=== PATIENT | female | born 1980 | race Caucasian/White ===

== ENCOUNTER 2020-06-27 06:19 | Day surgery (SDC) | payer OTHER ==
[2020-06-26 10:21] VITALS: BMI 41.0
[2020-06-27] MEDS ORDERED: MIDAZOLAM HCL 2 MG/2 ML SINGLE DOSE VIAL ONE ×2 (08:45→08:49)
[2020-06-27 08:48] VITALS: TEMP 97.7
[2020-06-27] MEDS ORDERED: ACETAMINOPHEN 325 MG TABLET (FP) ONE (10:09)
[2020-06-27 16:11] VITALS: BP 133/84; PULSE 88
== END 2020-06-27 11:30 | disposition home or self-care (01) ==
LOC: JASU-SURG 06:19
PROVIDERS: ATTEND Urology
PROC: 0TF3XZZ Fragmentation in Right Kidney Pelvis, External Approach (ICD-10-PCS; principal; 2020-06-27 08:45)
DX: N20.0 Calculus of kidney (principal)
CPT/HCPCS: 81025; 84703

== ENCOUNTER 2021-09-10 00:50 | Emergency (ER) | payer OTHER ==
[2021-09-10 01:05] VITALS: BP 128/80; PULSE 92; TEMP 97.6
[2021-09-10] MEDS ORDERED: ACETAMINOPHEN INJECTION 100 ML IVPB ONE (02:06)
[2021-09-10] MEDS ORDERED: ACETAMINOPHEN 1000 MG/100 ML BAG IVPB ONE (02:07)
[2021-09-10 02:11] LABS: BASO % 0.7 % (0-2.0); EOS % 4.5 % (0-4.5); HEMATOCRIT 38.9 % (32.4-45.2); HEMOGLOBIN 13.4 GM/dL (10.7-15.3); LYMPH % 20.8 % (8-40); MCH 32.1 pg (25.7-33.7); MCHC 34.3 g/dl (32.0-36.0); MEAN CELL VOLUME 93.5 fl (80-96); MONO % 7.4 % (3.8-10.2); NEUT % 66.6 % (42.8-82.8); PLATELET COUNT 261 10^3/uL (134-434); RBC 4.17 M/mm3 (3.60-5.2); RDW 14.5 % (11.6-15.6)
[2021-09-10 02:20] LABS: EPI CELLS >36 /uL (0-25.1); HYALINE CASTS 0 /uL (0-3.1); URINE APPEARANCE CLEAR; URINE BACTERIA 807 /uL (0-1359); URINE BILIRUBIN NEGATIVE (NEGATIVE); URINE COLOR YELLOW; URINE GLUCOSE (UA) NEGATIVE (NEGATIVE); URINE KETONE NEGATIVE (NEGATIVE); URINE LEUK ESTERASE NEGATIVE (NEGATIVE); URINE NITRITE NEGATIVE (NEGATIVE); URINE PROTEIN NEGATIVE (NEGATIVE); URINE RBC 51 /uL (0-23.9); URINE UROBILINOGEN 0.2 mg/dL (0.2-1.0); URINE WBC 25 /uL (0-25.8)
[2021-09-10 02:31] LABS: ALBUMIN 3.1 g/dl (3.4-5.0); BLOOD UREA NITROGEN 15.9 mg/dL (7-18); CALCIUM 8.4 mg/dL (8.5-10.1)
[2021-09-10 02:35] LABS: CREATININE 0.7 mg/dL (0.55-1.3)
[2021-09-10 02:36] LABS: BILIRUBIN,TOTAL 0.2 mg/dL (0.2-1); TOT PROT 6.4 g/dl (6.4-8.2)
[2021-09-10] MEDS ORDERED: CEPHALEXIN MONOHYDRATE 500 MG CAPSULE (UD) PO ONE (04:34)
[2021-09-10] MEDS ORDERED: CEPHALEXIN MONOHYDRATE 500 MG CAPSULE (UD) ONE (04:39)
== END 2021-09-10 04:48 | disposition home or self-care (01) ==
LOC: JER 00:50
PROC: 3E0333Z Introduction of Anti-inflammatory into Peripheral Vein, Percutaneous Approach (ICD-10-PCS; principal; 2021-09-10)
DX: K46.9 Unspecified abdominal hernia without obstruction or gangrene (principal); R31.9 Hematuria, unspecified; N13.30 Unspecified hydronephrosis
CPT/HCPCS: 36415; 74177-TC; 80053; 81003; 83605; 84703; 85025; 87086; 93005; 93010; 96374; 99285-25

== ENCOUNTER 2021-12-24 04:44 | Day surgery (SDC) | payer OTHER ==
[2021-12-21 13:12] VITALS: BMI 46.8
[2021-12-24] MEDS ORDERED: MIDAZOLAM HCL 2 MG/2 ML SINGLE DOSE VIAL ONE (16:57)
[2021-12-24 18:09] VITALS: BP 132/94; PULSE 73; TEMP 98.1
== END 2021-12-24 18:10 | disposition home or self-care (01) ==
LOC: JASU-SURG 04:44
PROVIDERS: ATTEND Urology
PROC: 0TF3XZZ Fragmentation in Right Kidney Pelvis, External Approach (ICD-10-PCS; principal; 2021-12-24 17:00)
DX: N20.0 Calculus of kidney (principal)
CPT/HCPCS: 81025

== ENCOUNTER 2022-06-10 04:26 | Day surgery (SDC) | payer OTHER ==
[2022-06-04 18:24] VITALS: BMI 46.8
[2022-06-10 14:50] VITALS: RESP 20
[2022-06-10] MEDS ORDERED: ONDANSETRON 4 MG/2 ML VIAL ONE (15:58)
[2022-06-10] MEDS ORDERED: FENTANYL CITRATE/PF 50 MCG/ML VIAL ONE (17:11)
[2022-06-10] MEDS ORDERED: MIDAZOLAM HCL 2 MG/2 ML SINGLE DOSE VIAL ONE (17:11)
[2022-06-10] MEDS ORDERED: PROPOFOL 20 ML ONE (17:31)
[2022-06-10 19:09] VITALS: TEMP 98
[2022-06-10 19:15] VITALS: BP 124/74; PULSE 75
== END 2022-06-10 18:45 | disposition home or self-care (01) ==
LOC: JASU-SURG 04:26
PROVIDERS: ATTEND Urology
PROC: 0TF4XZZ Fragmentation in Left Kidney Pelvis, External Approach (ICD-10-PCS; principal; 2022-06-10 16:00)
DX: N20.0 Calculus of kidney (principal)
CPT/HCPCS: 81025

== ENCOUNTER 2022-08-25 15:26 | Emergency (ER) | payer OTHER ==
[2022-08-25 15:33] VITALS: BP 126/85; PULSE 90; RESP 18; TEMP 98.4; BMI 46.8
[2022-08-25] MEDS ORDERED: KETOROLAC TROMETHAMINE 30 MG/1 ML VIAL IVPUSH ONE (16:49)
[2022-08-25] MEDS ORDERED: KETOROLAC TROMETHAMINE 30 MG/1 ML VIAL ONE (16:57)
[2022-08-25 17:24] LABS: BASO % 0.8 % (0-2.0); EOS % 3.9 % (0-4.5); HEMATOCRIT 40.1 % (32.4-45.2); HEMOGLOBIN 13.6 GM/dL (10.7-15.3); LYMPH % 16.2 % (8-40); MCH 32.3 pg (25.7-33.7); MCHC 33.9 g/dl (32.0-36.0); MEAN CELL VOLUME 95.3 fl (80-96); MEAN PLT VOLUME 8.3 fl (7.5-11.1); MONO % 7.1 % (3.8-10.2); PLATELET COUNT 287 10^3/uL (134-434); RDW 14.7 % (11.6-15.6); WHITE BLOOD COUNT 13.4 K/mm3 (4.0-10.0)
[2022-08-25 17:47] LABS: BLOOD UREA NITROGEN 20.1 mg/dL (7-18); CALCIUM 8.5 mg/dL (8.5-10.1)
[2022-08-25 17:49] LABS: ALBUMIN 3.2 g/dl (3.4-5.0)
[2022-08-25 17:51] LABS: CREATININE 0.6 mg/dL (0.55-1.3)
[2022-08-25 17:53] LABS: BILIRUBIN,TOTAL 0.3 mg/dL (0.2-1); TOT PROT 6.8 g/dl (6.4-8.2)
[2022-08-25 18:33] LABS: EPI CELLS 13 /uL (0-25.1); HYALINE CASTS 1 /uL (0-3.1); PH,URINE 7.5 (5.0-8.0); URINE APPEARANCE CLEAR; URINE BACTERIA 352 /uL (0-1359); URINE BILIRUBIN NEGATIVE (NEGATIVE); URINE COLOR YELLOW; URINE GLUCOSE (UA) NEGATIVE (NEGATIVE); URINE KETONE NEGATIVE (NEGATIVE); URINE LEUK ESTERASE NEGATIVE (NEGATIVE); URINE NITRITE NEGATIVE (NEGATIVE); URINE PROTEIN NEGATIVE (NEGATIVE); URINE RBC 49 /uL (0-23.9); URINE UROBILINOGEN 0.2 mg/dL (0.2-1.0); URINE WBC 16 /uL (0-25.8)
== END 2022-08-25 20:12 | disposition home or self-care (01) ==
LOC: JERFT 15:26 → JER 15:26 → JERFT 20:12
PROC: 3E0333Z Introduction of Anti-inflammatory into Peripheral Vein, Percutaneous Approach (ICD-10-PCS; principal; 2022-08-25)
DX: M79.605 Pain in left leg (principal); M79.604 Pain in right leg
CPT/HCPCS: 36415; 80053; 81003; 82550; 82553; 85025; 93970-TC; 99284-25

== ENCOUNTER 2023-08-23 06:29 | Emergency (ER) | payer OTHER ==
[2023-08-23 06:40] VITALS: BMI 34.7
[2023-08-23] MEDS ORDERED: ACETAMINOPHEN INJECTION 100 ML IVPB ONE (07:50)
[2023-08-23] MEDS ORDERED: KETOROLAC TROMETHAMINE 15 MG/ML VIAL ONE (07:51)
[2023-08-23] MEDS: KETOROLAC TROMETHAMINE 15 MG/ML VIAL IVPUSH ONE (08:04)
[2023-08-23] MEDS: ACETAMINOPHEN 1000 MG/100 ML BAG IVPB ONE (08:04)
[2023-08-23] MEDS: LACTATED RINGERS SOLUTION 1000 ML INFUS.BAG IV ONE (08:15)
[2023-08-23 08:21] LABS: POTASSIUM 3.9 mmol/L (3.5-5.1)
[2023-08-23 08:23] LABS: CALCIUM 8.5 mg/dL (8.5-10.1)
[2023-08-23 08:24] LABS: ALBUMIN 3.4 g/dl (3.4-5.0); BLOOD UREA NITROGEN 16.7 mg/dL (7-18)
[2023-08-23 08:26] LABS: EPI CELLS 18 /uL (0-25.1); HYALINE CASTS 0 /uL (0-3.1); URINE APPEARANCE CLEAR; URINE BACTERIA 368 /uL (0-1359); URINE BILIRUBIN NEGATIVE (NEGATIVE); URINE COLOR YELLOW; URINE GLUCOSE (UA) NEGATIVE (NEGATIVE); URINE KETONE NEGATIVE (NEGATIVE); URINE LEUK ESTERASE NEGATIVE (NEGATIVE); URINE NITRITE NEGATIVE (NEGATIVE); URINE PROTEIN NEGATIVE (NEGATIVE); URINE RBC 93 /uL (0-23.9); URINE UROBILINOGEN 0.2 mg/dL (0.2-1.0); URINE WBC 6 /uL (0-25.8)
[2023-08-23 08:27] LABS: CREATININE 0.7 mg/dL (0.55-1.3)
[2023-08-23 08:28] LABS: BASO % 0.8 % (0-2.0); EOS % 4.3 % (0-4.5); HEMATOCRIT 42.3 % (32.4-45.2); HEMOGLOBIN 14.2 GM/dL (10.7-15.3); LYMPH % 21.3 % (8-40); MCH 31.9 pg (25.7-33.7); MCHC 33.5 g/dl (32.0-36.0); MEAN CELL VOLUME 95.4 fl (80-96); MEAN PLT VOLUME 8.5 fl (7.5-11.1); NEUT % 66.6 % (42.8-82.8); PLATELET COUNT 280 10^3/uL (134-434); RBC 4.44 M/mm3 (3.60-5.2); RDW 14.7 % (11.6-15.6); WHITE BLOOD COUNT 11.5 K/mm3 (4.0-10.0)
[2023-08-23 08:29] LABS: BILIRUBIN,TOTAL 0.6 mg/dL (0.2-1)
[2023-08-23 09:57] VITALS: BP 130/83; PULSE 65; RESP 16; TEMP 97.4
== END 2023-08-23 10:10 | disposition home or self-care (01) ==
LOC: JER 06:29
PROC: 3E0333Z Introduction of Anti-inflammatory into Peripheral Vein, Percutaneous Approach (ICD-10-PCS; principal; 2023-08-23)
DX: R10.84 Generalized abdominal pain (principal); N13.30 Unspecified hydronephrosis; R11.10 Vomiting, unspecified; R68.83 Chills (without fever); R35.0 Frequency of micturition
CPT/HCPCS: 36415; 74176-TC; 80053; 81003; 84703; 85025; 87086; 99284-25

== ENCOUNTER 2024-05-07 18:58 | Emergency (ER) | payer OTHER ==
[2024-05-07 19:06] VITALS: BP 137/89; PULSE 87; RESP 18; TEMP 97.7; BMI 44.7
[2024-05-07] MEDS ORDERED: ACETAMINOPHEN INJECTION 100 ML ONE (20:02)
[2024-05-07] MEDS: ACETAMINOPHEN 1000 MG/100 ML BAG IVPB ONE (20:14)
[2024-05-07 20:19] LABS: BASO % 1.1 % (0-2.0); HEMATOCRIT 41.7 % (32.4-45.2); HEMOGLOBIN 13.7 GM/dL (10.7-15.3); LYMPH % 19.9 % (8-40); MCH 31.3 pg (25.7-33.7); MCHC 32.9 g/dl (32.0-36.0); MEAN CELL VOLUME 95.1 fl (80-96); MONO % 5.6 % (3.8-10.2); NEUT % 71.4 % (42.8-82.8); PLATELET COUNT 313 10^3/uL (134-434); RBC 4.39 M/mm3 (3.60-5.2); RDW 14.6 % (11.6-15.6); WHITE BLOOD COUNT 11.3 K/mm3 (4.0-10.0)
[2024-05-07 20:31] LABS: INR 0.96 (0.83-1.09); PROTHROMBIN TIME (PATIENT) 11.1 SEC (9.7-13.0)
[2024-05-07 20:34] LABS: ACTIVATED PTT 29.4 SECONDS (25.2-36.5)
[2024-05-07 20:57] LABS: POTASSIUM 3.9 mmol/L (3.5-5.1)
[2024-05-07 20:59] LABS: CALCIUM 8.9 mg/dL (8.5-10.1)
[2024-05-07 21:00] LABS: ALBUMIN 3.6 g/dl (3.4-5.0); BLOOD UREA NITROGEN 15.7 mg/dL (7-18)
[2024-05-07 21:05] LABS: BILIRUBIN,TOTAL 0.3 mg/dL (0.2-1)
[2024-05-07] MEDS ORDERED: KETOROLAC TROMETHAMINE 15 MG/ML VIAL ONE (21:14)
[2024-05-07] MEDS: KETOROLAC TROMETHAMINE 15 MG/ML VIAL IVPUSH ONE (21:20)
[2024-05-07 21:35] LABS: EPI CELLS 32 /uL (0-25.1); HYALINE CASTS 0 /uL (0-3.1); PH,URINE 6.5 (5.0-8.0); URINE APPEARANCE CLOUDY; URINE BACTERIA 2356 /uL (0-1359); URINE BILIRUBIN NEGATIVE (NEGATIVE); URINE COLOR YELLOW; URINE GLUCOSE (UA) NEGATIVE (NEGATIVE); URINE KETONE NEGATIVE (NEGATIVE); URINE LEUK ESTERASE NEGATIVE (NEGATIVE); URINE NITRITE NEGATIVE (NEGATIVE); URINE PROTEIN NEGATIVE (NEGATIVE); URINE RBC 78 /uL (0-23.9); URINE UROBILINOGEN 0.2 mg/dL (0.2-1.0); URINE WBC 38 /uL (0-25.8)
[2024-05-07] MEDS ORDERED: CEFTRIAXONE 1 GM/50 ML BAG ONE (23:10)
[2024-05-07] MEDS: CEFTRIAXONE 1 GM in DEXTROSE 5%-WATER - 100 ML IVPB ONE (23:27)
== END 2024-05-08 00:25 | disposition home or self-care (01) ==
LOC: JER 18:58
PROC: 3E03329 Introduction of Other Anti-infective into Peripheral Vein, Percutaneous Approach (ICD-10-PCS; principal; 2024-05-07)
PROC: 3E033NZ Introduction of Analgesics, Hypnotics, Sedatives into Peripheral Vein, Percutaneous Approach (ICD-10-PCS; 2024-05-07)
PROC: 3E0333Z Introduction of Anti-inflammatory into Peripheral Vein, Percutaneous Approach (ICD-10-PCS; 2024-05-07)
DX: R10.31 Right lower quadrant pain (principal); N13.2 Hydronephrosis with renal and ureteral calculous obstruction; R30.0 Dysuria; R31.9 Hematuria, unspecified; R10.13 Epigastric pain
CPT/HCPCS: 36415; 74176-TC; 76705-TC; 80053; 81003; 84703; 85025; 85610; 85730; 86850; 86900; 86901; 87086; 93005; 93010; 99285-25; J0131